=== PATIENT | female | born 1985 | race Two or more races ===

== ENCOUNTER 2020-12-12 14:45 | Inpatient (IN) | payer OTHER ==
[~2020-12-12] VITALS: Ht 162.6 cm; Wt 86.2 kg
[2020-12-20] MEDS ORDERED: UNISOM SLEEP AI25 MG PO (06:16)
[2020-12-20] MEDS ORDERED: PRENATAL TABLE1 EAC1 PO (06:16)
[2020-12-20] MEDS ORDERED: FORTAMET500 MG PO (06:16)
[2020-12-22] MEDS ORDERED: DOXYLAMINE-PYR1 EACH (11:29)
[2020-12-22] MEDS ORDERED: PANTOPRAZOLE SO40 MG (11:30)
[2020-12-23] MEDS ORDERED: KETO10TA2 PO (07:43)
== END 2020-12-23 10:49 | disposition home or self-care (01) | DRG 788 ==
LOC: LDR 12-20 04:41 → SURG-SUITE 12-20 04:41 → SURH 01-03 14:45
PROVIDERS: ADMIT Obstetrics & Gynecology Maternal & Fetal Medicine; ATTEND Obstetrics & Gynecology Maternal & Fetal Medicine
PROC: 4A1HXFZ Monitoring of Products of Conception, Cardiac Rhythm, External Approach (ICD-10-PCS; 2020-12-20)
PROC: 10D00Z1 Extraction of Products of Conception, Low, Open Approach (ICD-10-PCS; principal; 2020-12-20 17:00)
DX: O66.2 Obstructed labor due to unusually large fetus (principal); O24.429 Gestational diabetes mellitus in childbirth, unspecified control; O99.824 Streptococcus B carrier state complicating childbirth; Z37.0 Single live birth; Z3A.38 38 weeks gestation of pregnancy

== ENCOUNTER 2020-12-15 10:47 | Outpatient (CLI) | payer OTHER | END 2020-12-15 11:37 | disposition home or self-care (01) | LOC: NST 10:47 | PROVIDERS: ATTEND Obstetrics & Gynecology Maternal & Fetal Medicine | DX: Z34.83 Encounter for supervision of other normal pregnancy, third trimester (principal) ==

== ENCOUNTER 2022-09-29 14:54 | Emergency (ER) | payer OTHER ==
[~2022-09-29] VITALS: Ht 162.6 cm; Wt 75.7 kg
[~2022-09-29 14:54] MED LIST: DOXYLAMINE-PYR1 EACH; FORTAMET500 MG PO; KETO10TA2 PO; PANTOPRAZOLE SO40 MG; PRENATAL TABLE1 EAC1 PO; UNISOM SLEEP AI25 MG PO
[2022-09-29] MEDS ORDERED: OZEMPIC0.25 MG/0. SQ (15:40)
== END 2022-09-29 18:08 | disposition home or self-care (01) ==
LOC: ER 14:54
DX: R00.2 Palpitations (principal); Z88.0 Allergy status to penicillin; Z88.8 Allergy status to other drugs, medicaments and biological substances

== ENCOUNTER 2023-04-14 16:47 | Outpatient (CLI) | payer OTHER ==
[~2023-04-14 16:47] MED LIST changes: +OZEMPIC0.25 MG/0. SQ
== END 2023-04-14 18:12 | disposition home or self-care (01) ==
LOC: NST 16:47
PROVIDERS: ATTEND Obstetrics & Gynecology Maternal & Fetal Medicine
DX: Z34.83 Encounter for supervision of other normal pregnancy, third trimester (principal)

== ENCOUNTER 2023-05-04 07:53 | Inpatient (IN) | payer OTHER ==
[~2023-05-04] VITALS: Ht 162.6 cm; Wt 4.5 kg
[2023-05-04] MEDS ORDERED: CLINDAMYCIN PHOSPHATE 150 MG/ML (900mg) IV ONE (08:15)
[2023-05-04] MEDS ORDERED: RINGERS SOLUTION,LACTATED 1,000 ML IV SCH (08:15)
[2023-05-04 08:58] LABS: HEMATOCRIT 33.4 % (36.0-45.00); HEMOGLOBIN 10.7 g/dL (12.0-15.00); MEAN CELL VOLUME 73.2 fL (80.00-100.00); MEAN CORPUSCULAR HEMOGLOBIN 23.4 pg (27.00-32.0); PLATELET COUNT 253 K/uL (150-450); RED BLOOD COUNT 4.56 M/uL (4.00-6.00); RED CELL DISTRIBUTION WIDTH 16.5 % (11.5-14.5)
[2023-05-04 09:20] LABS: ALBUMIN 2.3 gm/dL (3.4-5.0); BILIRUBIN TOTAL 0.33 mg/dL (0.3-1.2); CALCIUM 8.9 mg/dL (8.5-10.1); CREATININE SERUM 0.47 mg/dL (0.55-1.02); GFR 149.94; GLOBULINA 3.3 G/DL (2.4-3.5); POTASSIUM 4.25 mEq/L (3.5-5.1); TOTAL PROTEIN 5.6 gm/dL (6.4-8.2)
[2023-05-04 09:25] LABS: INR < 0.93; PARTIAL THROMBOPLASTIN TIME 28.2 SECONDS (22.0-34.0); PROTHROMBIN TIME 9.7 SECONDS (9.0-11.5)
[2023-05-04] MEDS ORDERED: HUMALOG100 UNIT/2 SUBCUTANEO (09:55)
[2023-05-04] MEDS ORDERED: LEVEMIR100 UNIT/1 SUBCUTANEO (09:56)
[2023-05-04] MEDS ORDERED: DEXTROSE 5 % IN WATER 100 ML IV ONE (11:30)
[2023-05-04] MEDS ORDERED: DEXTROSE 5% IV ONE (11:30)
[2023-05-04] MEDS ORDERED: WATER IV ONE (11:30)
[2023-05-04] MEDS ORDERED: DEXTROSE 5%-LACTATED RINGERS 1,000 ML IV SCH (13:00)
[2023-05-04] MEDS ORDERED: OXYTOCIN 10 UNITS/ML VIAL ONE ×2 (13:35→14:54)
[2023-05-04] MEDS ORDERED: ERYTHROMYCIN BASE 3.5 GM OINT...G. OP ONE ×2 (13:35→14:54)
[2023-05-04] MEDS ORDERED: KETOROLAC TROMETHAMINE 30 MG VIAL IV SCH (15:04)
[2023-05-04] MEDS ORDERED: MORPHINE SULFATE 4 MG/ML CARTRIDGE IV SCH (17:00)
[2023-05-04] MEDS ORDERED: KETOROLAC TROMETHAMINE 30 MG VIAL ONE (17:31)
[2023-05-04] MEDS ORDERED: CARBOPROST TROMETHAMINE 250 MCG/ML AMPUL IM ONE ×2 (19:22→19:30)
[2023-05-04 20:23] LABS: MEAN CELL VOLUME 72.9 fL (80.00-100.00); MEAN CORPUSCULAR HGB CONC 32.2 g/dl (32.0-36.0); PLATELET COUNT 216 K/uL (150-450); RED BLOOD COUNT 2.84 M/uL (4.00-6.00); RED CELL DISTRIBUTION WIDTH 16.2 % (11.5-14.5)
[2023-05-04 20:29] LABS: MEAN CORPUSCULAR HEMOGLOBIN 23.5 pg (27.00-32.0)
[2023-05-04 20:30] LABS: HEMATOCRIT 20.8 % (36.0-45.00); HEMOGLOBIN 6.7 g/dL (12.0-15.00)
[2023-05-04] MEDS ORDERED: FUROsemide 20 MG/2 ML VIAL IV SCH (20:45)
[2023-05-04] MEDS ORDERED: INSULIN NPH HUMAN ISOPHANE 1,000 UNITS/10 ML UNITS SUBCUTANEO SCH (21:00)
[2023-05-05] MEDS ORDERED: ACETAMINOPHEN 500 MG GEL..CAP PO SCH (06:00)
[2023-05-05] MEDS ORDERED: INSULIN NPH HUMAN ISOPHANE 1,000 UNITS/10 ML UNITS SUBCUTANEO SCH (06:00)
[2023-05-05] MEDS ORDERED: LABETALOL HCL 100 MG/20 ML ML IV STA (08:14)
[2023-05-05] MEDS ORDERED: GABAPENTIN 300 MG CAPSULE PO SCH (09:00)
[2023-05-05] MEDS ORDERED: SIMETHICONE 125 MG CAPSULE PO SCH (09:00)
[2023-05-05] MEDS ORDERED: PNV,CALCIUM 72/IRON/FOLIC ACID 1 TAB TABLET PO SCH (09:00)
[2023-05-05] MEDS ORDERED: DOCUSATE SODIUM 100MG CAP PO SCH (09:00)
[2023-05-05] MEDS ORDERED: IBUprofen 600 MG TABLET PO SCH (12:00)
[2023-05-05] MEDS ORDERED: GUAIFENESIN 200 MG/10 ML BLIST.PACK PO SCH (20:00)
[2023-05-05] MEDS ORDERED: CARBOPROST TROMETHAMINE 250 MCG/ML AMPUL IM ONE ×2 (20:30→21:30)
[2023-05-05] MEDS ORDERED: METHYLERGONOVINE MALEATE 0.2 MG/ML AMPUL IM SCH (20:31)
[2023-05-05] MEDS ORDERED: OXYTOCIN 10 UNITS/ML VIAL ONE (20:36)
[2023-05-05] MEDS ORDERED: [UNRECOGNIZED DRUG - SUPPLY] MISCELL ONE (20:37)
[2023-05-05] MEDS ORDERED: OXYTOCIN 10 UNITS/ML VIAL IV ONE (21:00)
[2023-05-06 03:04] LABS: HEMATOCRIT 24.3 % (36.0-45.00); MEAN CELL VOLUME 74.5 fL (80.00-100.00); PLATELET COUNT 187 K/uL (150-450); RED BLOOD COUNT 3.26 M/uL (4.00-6.00); RED CELL DISTRIBUTION WIDTH 16.8 % (11.5-14.5)
[2023-05-06 03:05] LABS: HEMOGLOBIN 8.3 g/dL (12.0-15.00); MEAN CORPUSCULAR HEMOGLOBIN 25.4 pg (27.00-32.0)
[2023-05-06 03:40] LABS: INR < 0.93; PARTIAL THROMBOPLASTIN TIME 27.1 SECONDS (22.0-34.0); PROTHROMBIN TIME 9.5 SECONDS (9.0-11.5)
[2023-05-06] MEDS ORDERED: LABETALOL HCL 200 MG TABLET PO SCH (09:00)
[2023-05-06] MEDS ORDERED: IRON FUM,PS/FOLIC/BCOMP,C NO.9 1 CAP CAPSULE PO SCH (09:00)
[2023-05-06 11:50] LABS: PH,URINE 6.5 (5.0-8.0); URINE APPEARANCE Clear; URINE BILIRRUBIN Negative (NEGATIVE); URINE BLOOD Large; URINE COLOR Orange; URINE LEUKOCYTE Small; URINE NITRATE Negative; URINE PROTEIN 30 (NEGATIVE); URINE UROBILINOGEN 0.2 E.U./dl
[2023-05-06 11:52] LABS: URINE RBC 5824.5 uL (0.0-20.8); URINE WBC 186.4 uL (0.0-23.2)
[2023-05-06 12:20] LABS: ALBUMIN 2.3 gm/dL (3.4-5.0); BILIRUBIN TOTAL 0.25 mg/dL (0.3-1.2); CALCIUM 8.5 mg/dL (8.5-10.1); CREATININE SERUM 0.52 mg/dL (0.55-1.02); GFR 133.43; GLOBULINA 3.1 G/DL (2.4-3.5); POTASSIUM 3.46 mEq/L (3.5-5.1); TOTAL PROTEIN 5.4 gm/dL (6.4-8.2)
[2023-05-06 12:37] LABS: URINE GLUCOSE 100 MG/DL (NEGATIVE)
[2023-05-06] MEDS ORDERED: PROMETHAZINE HCL 25 MG/ML AMPUL IV PRN (18:15)
== END 2023-05-07 10:42 | disposition home or self-care (01) | DRG 783 ==
LOC: LDR 07:53 → OB/GYN 07:53 → LDR 10:59 → O/R 15:41 → OB/GYN 16:40
PROVIDERS: ADMIT Obstetrics & Gynecology; ATTEND Obstetrics & Gynecology
PROC: 0UB70ZZ Excision of Bilateral Fallopian Tubes, Open Approach (ICD-10-PCS; 2023-05-04)
PROC: 4A1HXCZ Monitoring of Products of Conception, Cardiac Rate, External Approach (ICD-10-PCS; 2023-05-04)
PROC: 10D00Z1 Extraction of Products of Conception, Low, Open Approach (ICD-10-PCS; principal; 2023-05-04 13:00)
DX: O34.211 Maternal care for low transverse scar from previous cesarean delivery (principal); O60.14X0 Preterm labor third trimester with preterm delivery third trimester, not applicable or unspecified; O24.424 Gestational diabetes mellitus in childbirth, insulin controlled; Z3A.36 36 weeks gestation of pregnancy; Z37.0 Single live birth; Z30.2 Encounter for sterilization